=== PATIENT | female | born 1940 | race African-American/Black ===

== ENCOUNTER 2016-05-05 20:30 | Emergency (ER) | payer MEDICARE ==
[~2016-05-05] VITALS: Ht 160 cm; Wt 77.1 kg
[~2016-05-05 20:30] MED LIST: ASPI-482 PO; ATOR20TA58 PO; DICL75TA PO; DULO60CA44 PO; ESOM40CA PO; LORA10TA3 PO; METF500T4 PO; ONDA8TAB12 PO; PROP160C PO; TIZA4TAB PO; TRAM50TA PO; TRIA1CAP3 PO; VERA180T4 PO
[2016-05-05 20:36] VITALS: BP 98/53
--- NOTE | 2016-05-05 21:13 | PHYS DOC ---
Past Medical History Past Medical History: Diabetes-Type II, GERD, High Cholesterol, Hypertension Past Surgical History: Other Additional Past Surgical Histo: eye Alcohol Use: None Drug Use: None Adult General Chief Complaint Chief Complaint: BACK PAIN OR INJURY [facility] HPI Patient is a 75 year old female presents emergency department stating that she is having axle or sinus pain and discomfort and pain in her cheeks area she also states that she is having pain in his going across her upper back. She states she has some numbness and tingling down into her arms. She does have equal diamond cutter noted bilaterally. She states that she called her primary care physician in regards to the pain and discomfort. She states that he advised her to stop taking the doxycycline and take Benadryl. He was under the impression she was having allergic reaction to the medication. Patient denies any rash, denies any nausea vomiting. She denies any injury or trauma to her back. Review of Systems Review of Systems Constitutional: Denies fever or chills [] Eyes: Denies change in visual acuity, redness, or eye pain [] HENT: Denies nasal congestion or sore throat. C/o maxillary sinus pain Respiratory: Denies cough or shortness of breath [] Cardiovascular: No additional information not addressed in HPI [] GI: Denies abdominal pain, nausea, vomiting, bloody stools or diarrhea [] : Denies dysuria or hematuria [] Musculoskeletal: upper back pain Integument: Denies rash or skin lesions [] Neurologic: Denies headache, focal weakness or sensory changes [] Current Medications Current Medications Current Medications Medications (Trade) Dose Ordered Sig/[facility] Start Time Stop Time Status Last Admin Dose Admin Cyclobenzaprine HCl (Flexeril) 5 mg 1X ONCE 05/05/16 22:30 05/05/16 22:31 DC 05/05/16 22:30 5 MG Ibuprofen (Motrin) 400 mg 1X ONCE 05/05/16 21:15 05/05/16 21:16 DC 05/05/16 21:12 400 MG Allergies Allergies Allergies Coded Allergies Type Severity Reaction Last Updated Verified Penicillins Allergy Intermediate Rash 01/19/16 Yes gabapentin Adverse Reaction Unknown feels jittery 01/19/16 Yes hydrocodone Adverse Reaction Unknown nightmares 01/19/16 Yes Physical Exam Physical Exam Constitutional: Well developed, well nourished, no acute distress, non-toxic appearance. [] HENT: Normocephalic, atraumatic, bilateral external ears normal, oropharynx moist, no oral exudates, nose normal. Bilateral tympanic membranes appear to be normal. Eyes: PERRLA, EOMI, conjunctiva normal, no discharge. [] Neck: Normal range of motion, no tenderness, supple, no stridor. [] Cardiovascular:Heart rate regular rhythm, no murmur [] Lungs & Thorax: Bilateral breath sounds clear to auscultation [] Skin: Warm, dry, no erythema, no rash. [] Back: She noted to have upper back tenderness along the upper shoulder areas. Extremities: No tenderness, no cyanosis, no clubbing, ROM intact, no edema. Bilateral upper extremity diamond cutter equal. Patient with equal strength with upper extremities. Bilateral radial pulses equal 2+. Neurologic: Alert and oriented X 3, normal motor function, normal sensory function, no focal deficits noted. [] Psychologic: Affect normal, judgement normal, mood normal. [] Current Patient Data Vital Signs Vital Signs Date Time Temp Pulse Resp B/P Pulse Ox O2 Delivery O2 Flow Rate FiO2 05/05/16 20:36 97.6 90 18 98/53 96 Room Air 97.6 EKG EKG EKG was completed at 20-22 with a normal sinus rhythm of a heart rate of [address] Ortiz. [] Radiology/Procedures Radiology/Procedures [] Course & Med Decision Making Course & Med Decision Making Pertinent Labs and Imaging studies reviewed. (See chart for details) She was provided with ibuprofen here in the emergency department. I will out of the medication to work for approximately 45 minutes with patient stating she still continues to have pain and discomfort. Patient was provided with Flexeril 5 mg. Patient was reevaluated shortly after the medication was provided with patient not having any relief. She states that it feels like she has pins and needles in her back. Patient was instructed to use ice packs at home continue with her doxycycline for sinus infection. Also recommended Flexeril prescription and she was instructed this medication will cause drowsiness do not take any be alert and oriented. Also continue to with take ibuprofen 400 mg every 8 hours with food. Patient will be discharged home in stable condition signs and symptoms to return back to emergency department been provided. Patient was encouraged to follow-up with her primary care physician on Sunday. [] Dragon Disclaimer Dragon Disclaimer This electronic medical record was generated, in whole or in part, using a voice recognition dictation system. Departure Departure Impression: Primary Impression: Back pain Disposition: HOME, SELF-CARE Condition: STABLE Referrals: ROWENA SANCHES MD (PCP) Patient Instructions: Back Pain, Adult, [id number] Additional Instructions: Activity as tolerated Medication as prescribed Flexeril will cause drowsiness do not take any be alert and oriented. Ibuprofen 400 mg every 8 hours with food stop taking few develop an upset stomach. Continue with the antibiotic that you have been prescribed Ice packs to the areas of discomfort on 20 minutes off 20 minutes several times a day. If you are unable to tolerate ice to your back you may use warm moist heat. Follow-up through primary care physician on Sunday. Return back to emergency percent symptoms of become worse. Scripts Cyclobenzaprine Hcl 5 Mg Tablet1 Tab PO BID #20 TAB Prov:NOVA KINNEY NP 05/05/16 NOVA KINNEY NP May 05, 2016 21:13
[2016-05-05] MEDS ORDERED: IBUPROFEN 400 MG TABLET. PO ONE (21:15)
[2016-05-05] MEDS ORDERED: CYCLOBENZAPRINE 10 MG TABLET. PO ONE (22:30)
[2016-05-05] MEDS ORDERED: CYCL5TAB PO (23:15)
--- NOTE | 2016-05-06 12:11 | EKG ---
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
== END 2016-05-05 23:25 | disposition home or self-care (01) ==
LOC: ER 20:30
DX: M54.6 Pain in thoracic spine (principal); E11.9 Type 2 diabetes mellitus without complications; E78.00 Pure hypercholesterolemia, unspecified; I10 Essential (primary) hypertension; Z88.0 Allergy status to penicillin; Z88.5 Allergy status to narcotic agent; Z88.8 Allergy status to other drugs, medicaments and biological substances
CPT/HCPCS: 93005; 99283-25

== ENCOUNTER → 2016-05-30 | Outpatient (CLI) | payer MEDICARE ==
[2016-05-05 20:36] VITALS: BP 98/53
[~2016-05-30] MED LIST changes: +CYCL5TAB PO; +REGADENOSON 0.4 MG/5 ML DISP.SYRIN. IV ONE
--- NOTE | 2016-05-30 12:28 | CARD ---
APPROVED REPORT EXAM: Two-dimensional and M-mode echocardiogram with Doppler and color Doppler. Other Information Quality : GoodHR: 80bpm Rhythm : NSR INDICATION Abnormal ECG Short of breath RISK FACTORS Hypertension Hyperlipidemia Diabetes 2D DIMENSIONS RVDd2.5 (2.9-3.5cm)Left Atrium(2D)3.5 (1.6-4.0cm) IVSd1.0 (0.7-1.1cm)Aortic Root(2D)2.7 (2.0-3.7cm) LVDd4.5 (3.9-5.9cm)LVOT Diameter2.2 (1.8-2.4cm) PWd1.0 (0.7-1.1cm)LVDs2.7 (2.5-4.0cm) FS (%) 39.9 %SV64.0 ml LVEF(%)70.6 (>50%) Aortic Valve AoV Peak Crow.129.3cm/sAoV VTI24.7cm AO Peak GR.6.7mmHgLVOT Peak Crow.106.8cm/s AO Mean GR.4mmHgAVA (VMAX)3.05cm2 Mitral Valve MV E Phtkkpqk94.7cm/sMV E Peak Gr.1mmHg MV DECEL [id number] A Hixnvcok67.7cm/s MV E Mean Gr.1mmHgE/A Ratio0.7 MV A Ewnmdyck019hw Pulmonary Valve PV Peak Przirxob610.3cm/s Tricuspid Valve TR P. Beeduzld851rg/sTR Peak Gr.40mmHg Pulmonary Vein S1 Vkcrnscq86.3cm/sD2 Rsmqlhnf29.4cm/s PVa ovciijsu55kmhm LEFT VENTRICLE The left ventricle is normal size. There is normal left ventricular wall thickness. The left ventricu lar systolic function is normal and the ejection fraction is within normal range. The Ejection Fracti on is 60-65%. There is normal LV segmental wall motion. Transmitral Doppler flow pattern is Grade I-a bnormal relaxation pattern. RIGHT VENTRICLE The right ventricle is normal size. There is normal right ventricular wall thickness. The right ventr icular systolic function is normal. ATRIA The left atrium size is normal. The right atrium size is normal. The interatrial septum is intact wit h no evidence for an atrial septal defect or patent foramen ovale as noted on 2-D or Doppler imaging. AORTIC VALVE The aortic valve is mildly sclerotic. The aortic valve is trileaflet. Doppler and Color Flow revealed no significant aortic regurgitation. There is no significant aortic valvular stenosis. MITRAL VALVE The mitral valve leaflets are thickened. There is no evidence of mitral valve prolapse. There is no m itral valve stenosis. Doppler and Color Flow revealed mild mitral regurgitation. TRICUSPID VALVE Doppler and Color Flow revealed mild tricuspid regurgitation. The pulmonary artery systolic pressure is estimated at 43 mmHg. PULMONIC VALVE Doppler and Color Flow revealed trace pulmonic valvular regurgitation. There is no pulmonic valvular stenosis. GREAT VESSELS The aortic root is normal in size. The ascending aorta is normal in size. The pulmonary artery is nor mal. The IVC is normal in size and collapses >50% with inspiration. PERICARDIAL EFFUSION There is no evidence of significant pericardial effusion. Critical Notification Critical Value: No <Conclusion> The left ventricle is normal size. The left ventricular systolic function is normal and the ejection fraction is within normal range. The Ejection Fraction is 60-65%. There is no significant aortic valvular stenosis. Doppler and Color Flow revealed no significant aortic regurgitation. Doppler and Color Flow revealed mild mitral regurgitation. Doppler and Color Flow revealed mild tricuspid regurgitation. The pulmonary artery systolic pressure is estimated at 43 mmHg.
--- NOTE | 2016-05-30 13:35 | RAD ---
APPROVED REPORT Test Type: Pharmacological Stress Nurse/Tech: Agustina Harding R.N. Test Indications: [place] Cardiac History: HTN Medications: SEE EMR Medical History: SEE EMR Resting ECG: SR Resting Heart Rate: 91 bpm Resting Blood Pressure: 130/63mmHg Pretest Chest Pain: None Nurse/Tech Notes S1S2, lungs CTA, denied chest pain or SOA. Consent: The procedure was explained to the patient in lay terms. Informed consent was witnessed. Elkin eout was entered into [employer]. History and Stress Test performed by Agustina Harding R.N. Pharm. Details Pharmacologic stress testing was performed using 0.4mg per 5ml of regadenoson given intravenously ove r 7-10 seconds. Stress Symptoms Dry cough. POST EXERCISE Reason for Termination: Infusion complete Max HR: 146 bpm Max Blood Pressure: 137/55mmHg Blood Pressure response to exercise: Normal blood pressure response during stress. Heart Rate response to exercise: Normal Chest Pain: No. Arrhythmia: No. ST Change: No. INTERPRETATION Stress EKG Conclusion: No acute changes were noted. Imaging Protocol IMAGE PROTOCOL: Rest Tc-99m/stress Tc-99m 1 day Rest: Stress: Viability: Radiopharm.Tc99m KnbjzkhbtMm22z Sestamibi Xhba17dXj 35.4mCi Duration 15min. 10min. Img Date 05/30/2016 05/30/2016 Inj-Img Bhir67puo. 60min. Rest Admin Site:IV - Right AntecubitalAdministrator:REILLY King Stress Admin Site: IV - Right AntecubitalAdministrator: REILLY King STRESS DATA End Diast. Vol.62.0mlAv. Heart Rate91.0bpm End Syst. Vol.12.0mlCO Index BSA0.0L/min Myocardial Crwk145.0gEject. Nxttiyzs50.0% Stress Rates Pk. Fill Rate3.49EDV/secLVtime Pk. Fill 165.82msec Pk. Empty Rate3.65ESV/secLVtime Pk. Eject83.55msec 03/14 Pk. Fill0.90EDV/sec Stress Scores Regional WT1.00Summed WT7.00 Regional WM0.00Summed WM0.00 The rest and stress images show normal perfusion, normal contraction and thickening. LV Perf. Quant 17 Seg. SSS0.00 17 Seg. SRS6.00 17 Seg. SDS0.00 Stress Defect Extent (% LAD)0.00Rest Defect Extent (% LAD)0.00Rev. Defect Extent (% LAD)0.00 Stress Defect Extent (% LCX) 5.00Rest Defect Extent (% LCX)38.80Rev. Defect Extent (% LCX)0.00 Stress Defect Extent (% RCA)0.00Rest Defect Extent (% RCA)1.10Rev. Defect Extent (% RCA)0.00 Stress Defect Extent (% STAR)3.00Rest Defect Extent (% STAR)11.70Rev. Defect Extent (% STAR)0.00 Other Information Quality:Good Risk Assessment: Low Risk Conclusion 1. No evidence of stress induced vasodilator changes. 2. Normal perfusion at stress/rest 3. Low risk study 4. EF > 70%
== END | disposition home or self-care (01) ==
LOC: NM 07:49
PROVIDERS: ATTEND Internal Medicine Cardiovascular Disease
DX: R94.31 Abnormal electrocardiogram [ECG] [EKG] (principal); R06.09 Other forms of dyspnea; R07.9 Chest pain, unspecified; I10 Essential (primary) hypertension; E11.9 Type 2 diabetes mellitus without complications; I34.0 Nonrheumatic mitral (valve) insufficiency; I07.1 Rheumatic tricuspid insufficiency; I37.1 Nonrheumatic pulmonary valve insufficiency
CPT/HCPCS: 78452; 93017; 93306; 96374; 96375; 96376; A9500; J2785

== ENCOUNTER → 2016-08-29 | Outpatient (CLI) | payer BC ==
[~2016-08-29] MED LIST changes: +IOHEXOL 180 MG/ML 10 ML VIAL. ONE; -REGADENOSON 0.4 MG/5 ML DISP.SYRIN. IV ONE; -VERA180T4 PO; +VERA180T49 PO; +methylPREDNISolone ACETATE 40 MG/ML VIAL. ONE; +methylPREDNISolone ACETATE 80 MG/ML VIAL. ONE
--- NOTE | 2016-08-30 03:48 | PAIN ---
DATE OF SERVICE: 08/29/2016 PROGRESS NOTE FOR PAIN CLINIC DIAGNOSES: Cervical radiculopathy with cervical degenerative disk disease. HISTORY OF PRESENT ILLNESS: This is a 76-year-old female who returns for followup, last seen on 02/29/2016. The patient reports she did very well with about 75% improvement in her neck and right upper extremity pain, it is about 50% improvement now at the most and is beginning to return more significantly in the base of the neck and right greater than left upper extremity with radiation to right hand and arm with tingling and numbness, also some aching and sharp pain that has been getting more constant and throbbing in the right hip. The patient reports it is a 10 on a scale of 10 at its worst, is a 6 on a scale of 10 today. The patient reports no new motor or sensory deficits, no new other complaints, but still significant pain is noted. PHYSICAL EXAMINATION: VITAL SIGNS: The patient's blood pressure 132/70, pulse 80, respirations 18, temperature 97.7 degrees Fahrenheit, height is 5 feet 2 inches, weight is 168 pounds. GENERAL: The patient is awake, alert, oriented, appropriate, very pleasant demeanor. HEENT: Shows normocephalic, atraumatic. Extraocular movements are intact and symmetrical. Oral cavity, mucous membranes are moist and pink. Dentition is intact. NECK: Shows anterior throat supple without palpable lymphadenopathy noted. Swallow reflex is symmetrical. CHEST: Shows normal on inspection. Breath sounds clear to auscultation bilaterally. HEART: Shows S1 and S2 clear. No murmurs auscultated. ABDOMEN: Soft, nontender, nondistended. No palpable organomegaly. No rebound or guarding demonstrated. MUSCULOSKELETAL: Back shows spine grossly in the midline. Slight exaggeration of thoracic kyphosis and mild flattening cervical and lumbar lordotic curvature. Cervical paraspinous musculature shows some moderate tenderness to palpation, but is symmetrical on inspection. No radiation with palpation. No trigger points. Also, some tenderness in the superomedial and lateral aspect of the trapezius without radiation. Neck shows good rotational motion both laterally as well as extension and flexion with some minor pain reported with extension, but not with forward flexion and only on the right side in the base of the neck and shoulder. EXTREMITIES: Upper extremities show deep tendon reflexes 2+ in the biceps and triceps tendons are equal. Motor exam is strong with cushion maker hand strength rated at 5/5 and symmetrical as is biceps and triceps flexion. Peripheral pulses are 2+ in radial distribution. Options were discussed with the patient, the patient's old chart was reviewed as her current medication regimen updated. Current review of systems updated today as well. We will proceed with a cervical epidural steroid injection as the first in the series with fluoroscopic guidance. Risks were again discussed including, but not limited to bleeding, infection, possibility of epidural hematoma, subsequent neurologic compromise, dural puncture, headaches, spinal cord and/or nerve damage, side effects of steroid medication and poor results regarding pain control. The patient understands and wishes to proceed. The patient will return to clinic in approximately 2 weeks for followup. She was counseled on return appointment, activity level and side effects to be aware of. DIAGNOSES: Cervical radiculopathy with cervical degenerative disk disease. PROCEDURE: Cervical epidural steroid injection in translaminar approach at C6-C7 level using C-arm fluoroscopic guidance under sterile prep and drape using local anesthetic. MEDICATIONS INJECTED: 120 mg of Depo-Medrol plus 5 mL of preservative-free normal saline and 2 mL of Isovue for contrast. CONDITION AT DISCHARGE: Stable. The patient tolerated procedure well, had no complications. PRABHA RYAN MD DR: SHIRIN/deirdre JOB#: [id number] / [id number]
== END | disposition home or self-care (01) ==
LOC: PNCL 11:04
PROVIDERS: ATTEND Anesthesiology
DX: M50.323 Other cervical disc degeneration at C6-C7 level (principal); Z88.6 Allergy status to analgesic agent; Z88.0 Allergy status to penicillin
CPT/HCPCS: 62321; J1030; J1040

== ENCOUNTER → 2016-12-08 | Outpatient (CLI) | payer BC ==
[~2016-12-08] MED LIST changes: -IOHEXOL 180 MG/ML 10 ML VIAL. ONE; -methylPREDNISolone ACETATE 40 MG/ML VIAL. ONE; -methylPREDNISolone ACETATE 80 MG/ML VIAL. ONE
--- NOTE | 2016-12-08 14:44 | RAD ---
DATE: 12/08/2016. EXAM: DIGITAL SCREEN BILAT W/CAD. HISTORY: Routine mammographic screening. COMPARISON: 12/08/2015, 11/29/2014, 12/03/2013. This study was interpreted with the benefit of Computerized Aided Detection (CAD). FINDINGS: The breast parenchyma is heterogeneously dense, which could reduce sensitivity of mammography. Breast parenchyma level C.. There are no suspicious masses, microcalcifications or architectural distortion. Coarse calcification on the left is stable and benign. BI-RADS CATEGORY: 2 BENIGN FINDING(S). RECOMMENDED FOLLOW-UP: 12M 12 MONTH FOLLOW-UP. PQRS compliance statement: Patient information was entered into a reminder system with a target due date 12/08/2017 or the next mammogram. Mammography is a sensitive method for finding small breast cancers, but it does not detect them all and is not a substitute for careful clinical examination. A negative mammogram does not negate a clinically suspicious finding and should not result in delay in biopsying a clinically suspicious abnormality. "Our facility is accredited by the [employer] Mammography Program."
== END | disposition home or self-care (01) ==
LOC: MAMMO 14:07
PROVIDERS: ATTEND Family Medicine
DX: Z12.31 Encounter for screening mammogram for malignant neoplasm of breast (principal)
CPT/HCPCS: G0202; 77067

== ENCOUNTER → 2017-12-25 | Outpatient (CLI) | payer BC ==
[~2017-12-25] MED LIST changes: +METF500T16 PO; -METF500T4 PO
--- NOTE | 2017-12-26 12:07 | RAD ---
DATE: December 25, 2017 EXAM: MAMMO CADENCE SCREENING BILATERAL HISTORY: Screening study. COMPARISON: 2015 and 2017 This study was interpreted with the benefit of Computerized Aided Detection (CAD). 2-D digital mammographic views of both breasts were performed in the CC and MLO projections. 3-D digital tomosynthesis images of both breasts were performed in the CC and MLO projections and reviewed on a computer workstation. FINDINGS: Breast Density: HETERO The breast parenchyma is heterogenously dense, which could reduce sensitivity of mammography. Breast parenchyma level C.. There are no dominant suspicious masses, suspicious microcalcifications or evidence of architectural distortion. IMPRESSION: No mammographic indicators for malignancy. BI-RADS CATEGORY: 1 NEGATIVE RECOMMENDED FOLLOW-UP: 12M 12 MONTH FOLLOW-UP PQRS compliance statement: Patient information was entered into a reminder system with a target due date December 26, 2018 for the next mammogram. Mammography is a sensitive method for finding small breast cancers, but it does not detect them all and is not a substitute for careful clinical examination. A negative mammogram does not negate a clinically suspicious finding and should not result in delay in biopsying a clinically suspicious abnormality. "Our facility is accredited by the [employer] Mammography Program." The patient's breast density may affect the ability of mammography to detect breast cancer. There are 4 categories of breast density, A, B, C and D. Breast density A means that most of the breast tissue is replaced with adipose tissue and therefore is not dense. Breast density B means that the breast tissue is mildly dense and scattered. Breast density C means that the breast tissue is heterogeneously dense. Breast density D means that the breast tissue is very dense. Breast densities especially C and D may decrease the sensitivity of mammography to detect breast cancer. Therefore, the patient may benefit from 3-D breast mammography (3D breast tomography) as a part of their screening mammogram. Insurance may or may not pay for this additional imaging. The patient's breast density based on today's mammogram is category C.
== END | disposition home or self-care (01) ==
LOC: MAMMO 14:40
PROVIDERS: ATTEND Family Medicine
DX: Z12.31 Encounter for screening mammogram for malignant neoplasm of breast (principal)
CPT/HCPCS: 77063; 77067

== ENCOUNTER 2018-10-09 11:04 | Emergency (ER) | payer BC ==
[~2018-10-09] VITALS: Ht 160 cm; Wt 78.5 kg
[~2018-10-09 11:04] MED LIST changes: -DULO60CA44 PO; +DULO60CA45 PO; -TIZA4TAB PO; +TIZA4TAB2 PO; -VERA180T49 PO; +VERA180T6 PO
[2018-10-09 11:25] VITALS: BP 143/79
[2018-10-09] MEDS ORDERED: methylPREDNISolone ACETATE 80 MG/ML VIAL. INT ART ONE (11:45)
[2018-10-09] MEDS ORDERED: LIDOCAINE 1% PF 5 ML VIAL. INJ ONE (11:45)
--- NOTE | 2018-10-09 11:59 | RAD ---
KNEE RIGHT 3V History: Right knee pain, no injury Comparison: June 02, 2014 Findings: 3 views right knee are submitted. No acute fracture or dislocation is identified. There is irvo-ht-uiwrdzee narrowing of the medial compartment joint space, mild osteoarthritis change of the lateral compartment and patellofemoral articulation. There is possible degree of suprapatellar soft tissue swelling. Impression: 1. 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 There may be suprapatellar soft tissue swelling. Electronically signed by: Manolo Starkey MD (10/09/2018 11:56 AM) [id number]
[2018-10-09] MEDS ORDERED: MELO15TA23 PO (12:12)
--- NOTE | 2018-10-09 12:12 | PHYS DOC ---
Past Medical History Past Medical History: Diabetes-Type II, GERD, High Cholesterol, Hypertension Past Surgical History: Other Additional Past Surgical Histo: eye Alcohol Use: None Drug Use: None Adult General Chief Complaint Chief Complaint: LOWER EXT PAIN HPI HPI 78-year-old female presents with right knee pain. She states it's been bothering her for some time but today she was walking into [facility] and it buckled on her. She states after buckled she's been having tremendous amount of discomfort. She states it's very tender when she tries to walk or bend it in any way. She states she did not fall and hit her knee. The pain is throbbing in nature.[] Review of Systems Review of Systems Constitutional: Denies fever or chills [] Eyes: Denies change in visual acuity, redness, or eye pain [] HENT: Denies nasal congestion or sore throat [] Respiratory: Denies cough or shortness of breath [] Cardiovascular: No additional information not addressed in HPI [] GI: Denies abdominal pain, nausea, vomiting, bloody stools or diarrhea [] : Denies dysuria or hematuria [] Musculoskeletal: Patient reports right knee pain[] Integument: Denies rash or skin lesions [] Neurologic: Denies headache, focal weakness or sensory changes [] Endocrine: Denies polyuria or polydipsia [] All other systems were reviewed and found to be within normal limits, except as documented in this note. Current Medications Current Medications Current Medications Medications (Trade) Dose Ordered Sig/Doreen Start Time Stop Time Status Last Admin Dose Admin Lidocaine HCl (Xylocaine-Mpf 1% 5ml Vial) 5 ml 1X ONCE 10/09/18 11:45 10/09/18 12:04 DC Methylprednisolone Acetate (DEPO-Medrol 80MG VIAL) 80 mg 1X ONCE 10/09/18 11:45 10/09/18 12:04 DC Allergies Allergies Allergies Coded Allergies Type Severity Reaction Last Updated Verified Penicillins Allergy Intermediate Rash 01/19/16 Yes gabapentin Adverse Reaction Unknown feels jittery 01/19/16 Yes hydrocodone Adverse Reaction Unknown nightmares 01/19/16 Yes Physical Exam Physical Exam Constitutional: Well developed, well nourished, no acute distress, non-toxic appearance. [] HENT: Normocephalic, atraumatic, bilateral external ears normal, oropharynx moist, no oral exudates, nose normal. [] Eyes: PERRLA, EOMI, conjunctiva normal, no discharge. [] Neck: Normal range of motion, no tenderness, supple, no stridor. [] Cardiovascular:Heart rate regular rhythm, no murmur [] Lungs & Thorax: Bilateral breath sounds clear to auscultation [] Abdomen: Bowel sounds normal, soft, no tenderness, no masses, no pulsatile masses. [] Skin: Warm, dry, no erythema, no rash. [] Back: No tenderness, no CVA tenderness. [] Extremities: Right knee is mildly painful through range of motion she is tender to palp at her medial and lateral joint space through range of motion there is some audible crepitus. [] Neurologic: Alert and oriented X 3, normal motor function, normal sensory function, no focal deficits noted. [] Psychologic: Affect normal, judgement normal, mood normal. [] Current Patient Data Vital Signs Vital Signs Date Time Temp Pulse Resp B/P (MAP) Pulse Ox O2 Delivery O2 Flow Rate FiO2 10/09/18 11:25 98.0 97 18 143/79 (100) 98 Room Air 98.0 EKG EKG [] Radiology/Procedures Radiology/Procedures [] Impressions: Right knee x-ray: Negative exam as interpreted by me Course & Med Decision Making Course & Med Decision Making Pertinent Labs and Imaging studies reviewed. (See chart for details) [Procedure: Right knee injection The medial joint space was identified and marked then prepped sterilely then using a 25-gauge inch and a half needle 5 mL of 1% lidocaine without epinephrine and 80 mg of Depo-Medrol were injected easily into the joint space. Patient experienced immediate relief of her symptoms. Patient tolerated procedure well.] Dragon Disclaimer Dragon Disclaimer This electronic medical record was generated, in whole or in part, using a voice recognition dictation system. Departure Departure Impression: Primary Impression: Right knee pain Disposition: 01 HOME, SELF-CARE Condition: IMPROVED Referrals: NANCY CALLE MD, Dr. is an orthopedic surgeon. Follow with him in the next couple of weeks to make sure your knee is feeling better. Patient Instructions: Arthritis, Nonspecific, Knee Injection, Knee Pain Additional Instructions: Follow with an orthopedic surgeon if there is no improvement in your knee pain. Return to the emergency department with any new or concerning symptoms Scripts Meloxicam (MELOXICAM) 15 Mg Tablet 1 TAB PO DAILY, #30 TAB 2 Refills Prov: MARGIE LEW DO 10/09/18 Problem Qualifiers Primary Impression: Right knee pain Chronicity: acute Qualified Codes: M25.561 - Pain in right knee MARGIE LEW DO Oct 09, 2018 12:12
== END 2018-10-09 12:39 | disposition home or self-care (01) ==
LOC: ER 11:04
DX: M25.561 Pain in right knee (principal); K21.9 Gastro-esophageal reflux disease without esophagitis; E78.00 Pure hypercholesterolemia, unspecified; E11.9 Type 2 diabetes mellitus without complications; I10 Essential (primary) hypertension; Z88.0 Allergy status to penicillin; Z88.5 Allergy status to narcotic agent; Z88.8 Allergy status to other drugs, medicaments and biological substances
CPT/HCPCS: 20610; 73562; 99284; J1040

== ENCOUNTER → 2019-01-13 | Outpatient (CLI) | payer BC ==
[~2019-01-13] MED LIST changes: +MELO15TA23 PO
--- NOTE | 2019-01-13 17:03 | RAD ---
DATE: 01/13/2019. EXAM: DIGITAL SCREEN BILAT W/CAD. HISTORY: Routine mammographic screening. COMPARISON: 12/25/2017. This study was interpreted with the benefit of Computerized Aided Detection (CAD). FINDINGS: Breast Density: HETERO The breast parenchyma is heterogenously dense, which could reduce sensitivity of mammography. Breast parenchyma level C.. Coarse calcifications are benign. There are no suspicious masses, microcalcifications or architectural distortion. The parenchymal pattern is stable. BI-RADS CATEGORY: 2 BENIGN FINDING(S). RECOMMENDED FOLLOW-UP: 12M 12 MONTH FOLLOW-UP. PQRS compliance statement: Patient information was entered into a reminder system with a target due date 01/14/2020 for the next mammogram. Mammography is a sensitive method for finding small breast cancers, but it does not detect them all and is not a substitute for careful clinical examination. A negative mammogram does not negate a clinically suspicious finding and should not result in delay in biopsying a clinically suspicious abnormality. "Our facility is accredited by the [employer] Mammography Program."
== END | disposition home or self-care (01) ==
LOC: MAMMO 13:55
PROVIDERS: ATTEND Family Medicine
DX: Z12.31 Encounter for screening mammogram for malignant neoplasm of breast (principal); R92.1 Mammographic calcification found on diagnostic imaging of breast
CPT/HCPCS: 77067

== ENCOUNTER 2019-03-06 11:46 | Emergency (ER) | payer BC ==
[~2019-03-06] VITALS: Ht 160 cm; Wt 78.5 kg
[2019-03-06 12:07] VITALS: BP 134/62
--- NOTE | 2019-03-06 12:39 | PHYS DOC ---
Past Medical History Past Medical History: Diabetes-Type II, GERD, High Cholesterol, Hypertension Past Surgical History: Other Additional Past Surgical Histo: eye Alcohol Use: None Drug Use: None Adult General Chief Complaint Chief Complaint: LOWER BACK PAIN OR INJURY HPI HPI Patient is a 78 year old female with history of hypertension, diabetes type 2, high cholesterol, who presents the ED today complaining of mild left low back pain described as sharp and intermittent for the last 2 weeks worse on weight bearing. Patient denies any known injury. She states she feels her left low back is inflamed. Denies any urinary symptoms. Patient denies any pain radiating to bilateral lower extremities, denies any loss of bowel bladder function. Review of Systems Review of Systems Constitutional: Denies fever or chills [] GI: Denies abdominal pain, nausea, vomiting, bloody stools or diarrhea [] : Denies dysuria or hematuria [] Musculoskeletal: Reports left low back pain Integument: Denies rash or skin lesions [] Neurologic: Denies headache, focal weakness or sensory changes [] All other systems were reviewed and found to be within normal limits, except as documented in this note. Allergies Allergies Allergies Coded Allergies Type Severity Reaction Last Updated Verified Penicillins Allergy Intermediate Rash 01/19/16 Yes gabapentin Adverse Reaction Unknown feels jittery 01/19/16 Yes hydrocodone Adverse Reaction Unknown nightmares 01/19/16 Yes Physical Exam Physical Exam Constitutional: Well developed, well nourished, no acute distress, non-toxic appearance. [] Abdomen: Bowel sounds normal, soft, no tenderness, no masses, no pulsatile masses. [] Skin: Warm, dry, no erythema, no rash. [] Back: Diffuse paraspinal muscle tenderness on palpation of the left lumbar spine, no midline lumbar spine tenderness, no CVA tenderness. Negative bilateral straight leg raises Extremities: No tenderness, no cyanosis, no clubbing, ROM intact, no edema. [] Neurologic: Alert and oriented X 3, normal motor function, normal sensory function, no focal deficits noted. [] Psychologic: Affect normal, judgement normal, mood normal. [] Current Patient Data Vital Signs Vital Signs Date Time Temp Pulse Resp B/P (MAP) Pulse Ox O2 Delivery O2 Flow Rate FiO2 03/06/19 12:07 98.2 58 18 134/62 (86) 97 Room Air 98.2 EKG EKG [] Radiology/Procedures Radiology/Procedures [] Course & Med Decision Making Course & Med Decision Making Pertinent Labs and Imaging studies reviewed. (See chart for details) This is a 78-year-old female patient presenting to the ED today with left low back pain that began 2 weeks ago, no known injury. No cauda equina syndrome symptoms. Discharged with Medrol Dosepak and cyclobenzaprine as well as [id number] Aleve. Follow-up with primary care doctor in 1-2 weeks. Supportive care measures like heating pad recommended. Dragon Disclaimer Dragon Disclaimer This electronic medical record was generated, in whole or in part, using a voice recognition dictation system. Departure Departure Impression: Primary Impression: Back pain Disposition: HOME, SELF-CARE Condition: STABLE Referrals: ROWENA SANCHES MD (PCP) follow up next week Patient Instructions: Back Pain, Adult, [id number] Additional Instructions: You were seen in the emergency room for low back pain. Consider getting a heating pad for your back. Follow-up with your own doctor in the course of next week Scripts Cyclobenzaprine Hcl (CYCLOBENZAPRINE HCL) 10 Mg Tablet 1 TAB PO TID, #30 TAB Prov: DARIANA PIZARRO APRN 03/06/19 Naproxen Sodium (ALEVE) 220 Mg Capsule 220 MG PO BID, #5 CAP Prov: DARIANA PIZARRO APRN 03/06/19 Methylprednisolone (MEDROL) 4 Mg Tab.ds.pk 1 PKG PO UD, #1 PKG Prov: YUSEFKARDARIANA APRN 03/06/19 Problem Qualifiers Primary Impression: Back pain Back pain location: low back pain Chronicity: acute Back pain laterality: left Sciatica presence: without sciatica Qualified Codes: M54.5 - Low back pain DARIANA PIZARRO KULWANT Mar 06, 2019 12:39
[2019-03-06] MEDS ORDERED: NAPR220C4 PO (12:43)
[2019-03-06] MEDS ORDERED: METH4TAB2 PO (12:43)
[2019-03-06] MEDS ORDERED: CYCL10TA2 PO (12:43)
== END 2019-03-06 12:53 | disposition home or self-care (01) ==
LOC: ER 11:46
DX: M54.5 Low back pain (principal); K21.9 Gastro-esophageal reflux disease without esophagitis; E11.9 Type 2 diabetes mellitus without complications; E78.00 Pure hypercholesterolemia, unspecified; I10 Essential (primary) hypertension; Z88.0 Allergy status to penicillin; Z88.5 Allergy status to narcotic agent; Z88.8 Allergy status to other drugs, medicaments and biological substances
CPT/HCPCS: 99283

== ENCOUNTER 2019-04-14 12:53 | Emergency (ER) | payer BC ==
[~2019-04-14] VITALS: Ht 160 cm; Wt 79.5 kg
[~2019-04-14 12:53] MED LIST changes: +CYCL10TA2 PO; +METH4TAB2 PO; +NAPR220C4 PO
[2019-04-14 13:33] VITALS: BP 168/79
[2019-04-14] MEDS ORDERED: METH4TAB2 PO (14:12)
--- NOTE | 2019-04-14 14:13 | PHYS DOC ---
Past Medical History Past Medical History: Diabetes-Type II, GERD, High Cholesterol, Hypertension Past Surgical History: Other Additional Past Surgical Histo: eye Alcohol Use: None Drug Use: None Adult General Chief Complaint Chief Complaint: HIP PAIN HPI HPI Patient is a 78 year old female who presents with L hip pain that has been radiating down the left leg that has been ongoing for a month. The patient has narcotics and muscle relaxers that she has been taking at home. Denies additional complaints. Complete ROS were reviewed and found to be within normal limits, except as documented in the HPI Review of Systems Review of Systems Constitutional: Denies fever or chills [] Eyes: Denies change in visual acuity, redness, or eye pain [] HENT: Denies nasal congestion or sore throat [] Respiratory: Denies cough or shortness of breath [] Cardiovascular: No additional information not addressed in HPI [] GI: Denies abdominal pain, nausea, vomiting, bloody stools or diarrhea [] : Denies dysuria or hematuria [] Musculoskeletal: Reports L lower back pain. Integument: Denies rash or skin lesions [] Neurologic: Denies headache, focal weakness or sensory changes [] Endocrine: Denies polyuria or polydipsia [] Complete systems were reviewed and found to be within normal limits, except as documented in this note. Allergies Allergies Allergies Coded Allergies Type Severity Reaction Last Updated Verified Penicillins Allergy Intermediate Rash 01/19/16 Yes gabapentin Adverse Reaction Unknown feels jittery 01/19/16 Yes hydrocodone Adverse Reaction Unknown nightmares 01/19/16 Yes Physical Exam Physical Exam Constitutional: Well developed, well nourished, no acute distress, non-toxic appearance. [] HENT: Normocephalic, atraumatic, bilateral external ears normal, oropharynx moist, no oral exudates, nose normal. [] Eyes: PERRLA, EOMI, conjunctiva normal, no discharge. [] Neck: Normal range of motion, no tenderness, supple, no stridor. [] Skin: Warm, dry, no erythema, no rash. [] Back: left lower back pain superior to hip on palpation. Extremities: No tenderness, no cyanosis, no clubbing, ROM intact, no edema. [] Neurologic: Alert and oriented X 3, normal motor function, normal sensory function, no focal deficits noted. [] Psychologic: Affect normal, judgement normal, mood normal. [] Current Patient Data Vital Signs Vital Signs Date Time Temp Pulse Resp B/P (MAP) Pulse Ox O2 Delivery O2 Flow Rate FiO2 04/14/19 13:33 97.7 71 20 168/79 (108) 98 Room Air 97.7 EKG EKG [] Radiology/Procedures Radiology/Procedures [] Course & Med Decision Making Course & Med Decision Making Pertinent Labs and Imaging studies reviewed. (See chart for details) Appears to be having sciatica. Will put on a medrol dose pack. Patient already has narcotics and muscle relaxers at home. Dragon Disclaimer Dragon Disclaimer This electronic medical record was generated, in whole or in part, using a voice recognition dictation system. Departure Departure Impression: Primary Impression: Sciatica of left side Disposition: HOME, SELF-CARE Condition: STABLE Referrals: ROWENA SANCHES MD (PCP) Patient Instructions: Sciatica Additional Instructions: Thank you for visiting [facility]. We appreciate you trusting us with your care. If any additional problems come up don't hesitate to return to visit us. Please follow up with your primary care provider so they can plan additional care if needed and know about the problem that you had. If symptoms worsen come back to the Emergency Department. Any concerning symptoms that start such as chest pain, shortness of air, weakness or numbness on one side of the body, running high fevers or any other concerning symptoms return to the ER. Scripts Methylprednisolone (MEDROL) 4 Mg Tab.ds.pk 1 PKG PO UD, #1 PKG Prov: LISSETT GUZMÁN APRN 04/14/19 LISSETT GUZMÁN APRN Apr 14, 2019 14:13
== END 2019-04-14 14:20 | disposition home or self-care (01) ==
LOC: ER 12:53
DX: M54.42 Lumbago with sciatica, left side (principal); M25.552 Pain in left hip; K21.9 Gastro-esophageal reflux disease without esophagitis; E11.9 Type 2 diabetes mellitus without complications; E78.00 Pure hypercholesterolemia, unspecified; I10 Essential (primary) hypertension; Z88.0 Allergy status to penicillin; Z88.5 Allergy status to narcotic agent; Z88.8 Allergy status to other drugs, medicaments and biological substances
CPT/HCPCS: 99283

== ENCOUNTER → 2019-05-08 | Outpatient (CLI) | payer BC ==
[2019-04-14 13:33] VITALS: BP 168/79
--- NOTE | 2019-05-08 12:20 | KCIC ---
MRI Lumbar Spine without contrast History: Low back pain, radicular leg pain, weakness Technique: Multiplanar, multi sequential noncontrast MR imaging was performed of the lumbar spine. Comparison: None Findings: Lumbar vertebral body stature is maintained. There is grade 1 anterior spondylolisthesis at L4-5 and to a somewhat lesser degree at L5-S1, negligible anterior spondylolisthesis L3-4. There is mild narrowing of the L4-5 intervertebral disc space, mild disc desiccation L3-4 and L5-S1. Conus terminates at T12-L1. There is small anterior annular tear L3-4. Not fully included, there is T2 hyperintense lesion of the right kidney at least 4.4 cm, separate focus anteriorly about 1.2 cm. There is focus of decreased T2 signal posteriorly of the left kidney about 1 cm in size with somewhat heterogeneous signal characteristics on the T1 sequence. T12-L1: Spinal canal and neural foramina are adequate. L1-L2: Spinal canal and neural foramina are adequate. There is negligible bulge. L2-L3: There is mild buckling of the ligamentum flavum and facet degenerative change. There is mild prominence of posterior epidural fat centrally. Neural foramina and spinal canal are adequate. L3-L4: There is mild buckling of the ligamentum flavum and facet degenerative change. There is negligible bulge. There is left posterior annular tear. There is very mild narrowing of the posterior neural foramina greater on the left by facets. Spinal canal is overall adequate. L4-L5: There is partial uncovering of the posterior aspect of the disc due to spondylolisthesis. There is mild to moderate facet degenerative change and mild buckling of the ligamentum flavum. There is juot-zh-wslteuay narrowing of the far left lateral recess, minimally on the right. Central canal is adequate. There is mild to moderate left and mild right neural foramina compromise in part from facets. L5-S1: There is aabh-tq-yjppehgr facet degenerative change. There is negligible bulge. Spinal canal is overall adequate. There is ujuu-qr-[id number] narrowing of the left neural foramen, disc osteophyte complex contacting undersurface of the exiting left L5 nerve root. There is minimal narrowing of the right neural foramen. Impression: 1. There is focus of somewhat heterogeneous signal of the left kidney which does not have features of a simple cyst at ultrasound evaluation recommended to exclude solid mass. There are likely cysts of the right kidney, not fully included. 2. There is cvcd-ox-uhijhvon left and mild right lateral recess stenosis at L4-5. 3. There is frsn-gm-ycnsokle left neural foramina compromise at L4-5 and L5-S1, minimally on the right at these levels and also minimal narrowing bilaterally at L3-4. 4. There is grade 1 anterior spondylolisthesis L4-5 and to lesser degree at L5-S1. There is multilevel facet degenerative change. Electronically signed by: Manolo Starkey MD (05/08/2019 12:17 PM) [id number]
== END ==
LOC: KCIC MRI 10:10
PROVIDERS: ATTEND Family Medicine
DX: M48.061 Spinal stenosis, lumbar region without neurogenic claudication (principal); M43.17 Spondylolisthesis, lumbosacral region; M25.78 Osteophyte, vertebrae; M54.10 Radiculopathy, site unspecified
CPT/HCPCS: 72148

== ENCOUNTER → 2019-07-30 | Outpatient (CLI) | payer BC ==
[~2019-07-30] MED LIST changes: +ALBU2.5V8 IH; +FLUT1DIS3 IH; +FLUT9.9S NS; +HYDR-2763 PO; +IOHEXOL 180 MG/ML 10 ML VIAL. ONE; +MECL-75 PO; +MONT10TA49 PO; +SUCR1TAB PO; +TRIA1CAP PO; +methylPREDNISolone ACETATE 40 MG/ML VIAL. ONE; +methylPREDNISolone ACETATE 80 MG/ML VIAL. ONE
--- NOTE | 2019-07-30 23:47 | PAIN ---
DATE OF SERVICE: 07/30/2019 INITIAL CONSULTATION FOR PAIN CLINIC CHIEF COMPLAINT: Low back and left lower extremity pain. HISTORY OF PRESENT ILLNESS: This is a 78-year-old female who presents with history of pain since about 03/04/2019. Suddenly occurred, but not a result of any specific injury or action that she is aware of. The patient reports the pain began in the low back and it has radiated in to the left lower hip, posterior gluteus, posterior thigh, posterior lateral thigh as well as the posterior calf with numbness in the foot and big toe on the left side. The patient reports it is worse with walking, standing, changing positions, getting up from seated position, generally better with sitting or lying down, but does awaken her from sleep about 3 times a night. The patient reports it does not affect her bowel or bladder control, but does affect her ability to walk where she is not using any assistive devices, but has been limping and favoring her left lower extremity fairly significantly. The patient reports she has done some physical therapy, also trigger point injections at her primary care physician's office, which did help temporarily. She has also been taking hydrocodone, which helps as well. The patient did have MRI scan of the lumbar spine on 05/08/2019 showing partial uncovering of the posterior aspect of the disk at L4-L5 with some oxks-tj-rrxaachp left and mild right neural foraminal compromise. L5-S1 shows vnok-cz-egfhqmok facet degenerative change with negligible bulge with afbl-ay-rhawcsyd narrowing of left neural foramen with disk osteophyte complex contacting undersurface of the exiting left L5 nerve root. The patient reports her disability rating from 0-10, 10 being the worst, is a 5 with family and home responsibilities, 4 with recreation and social activity, 8 with occupation, 0 sexual behavior, 3 with self-care and 2 with life support activities. The patient reports no loss of motor function once again, but significant fatigability of the left leg with walking and standing. The patient describes the pain as sharp, stabbing, throbbing, shooting in the lower extremity and aching in the back with some numbness in the left leg and foot, especially the great toe and aching in the back itself. PAST MEDICAL HISTORY: Significant for type 2 diabetes, hearing loss, glaucoma, hypertension, hypercholesterolemia, acid reflux, dizziness, arthritis. PREVIOUS SURGERY: Include cataract extractions in 2013. CURRENT MEDICATIONS: Include albuterol inhaler, sucralfate, Advair inhaler, Dyazide, hydrocodone, Nexium, atorvastatin, daily baby aspirin, metformin, verapamil, propranolol, duloxetine, triamterene, meloxicam and meclizine. ALLERGIES: THE PATIENT IS ALLERGIC TO HYDROCODONE AND GABAPENTIN AND PENICILLIN. FAMILY HISTORY: Significant for hypertension and diabetes. SOCIAL HISTORY: The patient does not drink alcohol, does not smoke, does not use any illegal, illicit or recreational drugs. The patient reports she is and lives locally in [place], [place] and reports she is currently retired. REVIEW OF SYSTEMS: The patient's review of systems is positive for those items mentioned in history of present illness. All systems reviewed and otherwise negative. It is complete, full and well documented on the patient's chart. PHYSICAL EXAMINATION: VITAL SIGNS: The patient's blood pressure is 149/75, pulse 75, respirations 18, temperature is 97.8 degrees Fahrenheit, height is 5 feet 3 inches, weight is 124 pounds. GENERAL: The patient is awake, alert, oriented, appropriate, very pleasant demeanor. HEENT: Exam shows normocephalic, atraumatic. Extraocular movements are intact and symmetrical. Oral cavity shows mucous membranes moist and pink. Dentition is intact. NECK: Shows anterior throat supple without palpable lymphadenopathy noted. Swallow reflex symmetrical. CHEST: Shows normal on inspection. Breath sounds are clear bilaterally. HEART: Shows S1, S2 clear. No murmurs auscultated. ABDOMEN: Soft, nontender, nondistended. No palpable organomegaly is noted. No rebound or guarding demonstrated. BACK: Shows spine grossly in the midline, normal-appearing cervical lordotic curvature, slight increase in thoracic kyphosis. Lumbar lordotic curvature is slightly flattened as well. Lumbar paraspinous muscle shows symmetrical on inspection, but with palpation shows some moderate tenderness diffusely bilaterally, but only diffusely in the lower lumbar distribution without radiation. The patient does show good rotational motion of lumbar spine, both laterally greater than 10 degrees right and left as well as extension greater than 10 degrees, forward flexion 45 degrees without significant increase in pain, no tenderness over the spinous processes, sacrum or sacroiliac regions. EXTREMITIES: Patient's lower extremities show deep tendon reflexes 1+ in the patellar and tendo calcaneus tendons. Motor exam is approximately 4 on a scale of 5 on the left, 5/5 on the right. Peripheral pulses are 1+ posterior tibia. No peripheral edema is noted. Lower extremities are warm and dry to touch, equal in color and appearance. Straight leg raise noted to be mildly positive on the left at about 45 degrees, decreased with knee flexion, right side is negative. Gaenslen's and Mj's maneuvers are grossly negative bilaterally as well. The patient is able to stand, has difficulty trying to stand on her toes as she loses balance quickly with putting all her weight on her left leg and walks with a slight favoring gait, does appear to favor the left lower extremity, not using any assistive devices such as canes or walkers to ambulate. SKIN: Shows warm and dry, good turgor. No edema. No sores, rashes or bruising throughout. IMPRESSION: 1. This is a 78-year-old female with approximate 6-month history of low back and left lower extremity pain in a radicular fashion. 2. MRI scan of lumbar spine as noted. 3. Arthritis. 4. Hypertension. 5. Type 2 diabetes. PLAN: Options were discussed with the patient including conservative medical managements, physical therapies and interventional techniques. She would like to pursue interventional techniques. We discussed a lumbar epidural steroid injection using description as well as anatomical models to describe the procedure. Risks were then discussed including, but not limited to bleeding, infection, possibility of epidural hematoma, subsequent neurological compromise, dural puncture, headaches, spinal cord and/or nerve damage, side effects of steroid medication and poor results regarding pain control. The patient understands and wished to proceed. The patient will return to clinic in approximately 2 weeks for followup. She was counseled on return appointment, activity level and side effects to be aware of. DIAGNOSES: Lumbar radiculopathy with lumbar degenerative disk disease, lumbar spinal stenosis. PROCEDURE: Lumbar epidural steroid injection, translaminar approach at the L5-S1 level using C-arm fluoroscopic guidance under sterile prep and drape using local anesthetic. MEDICATION INJECTED: A total of 120 mg Depo-Medrol plus 10 mL of preservative-free normal saline and 2 mL of contrast. CONDITION AT DISCHARGE: Stable. The patient tolerated the procedure well, had no complications. PRABHA RYAN MD DR: SHIRIN/deirdre JOB#: [id number] / [id number] ROWENA Salgado MD
== END ==
LOC: PNCL 10:28
PROVIDERS: ATTEND Anesthesiology
DX: M51.16 Intervertebral disc disorders with radiculopathy, lumbar region (principal); M48.061 Spinal stenosis, lumbar region without neurogenic claudication; E11.9 Type 2 diabetes mellitus without complications; I10 Essential (primary) hypertension; E78.00 Pure hypercholesterolemia, unspecified; Z87.39 Personal history of other diseases of the musculoskeletal system and connective tissue; Z88.8 Allergy status to other drugs, medicaments and biological substances; Z79.84 Long term (current) use of oral hypoglycemic drugs
CPT/HCPCS: 62323; J1030; J1040; Q9965

== ENCOUNTER → 2019-08-18 | Outpatient (CLI) | payer BC ==
--- NOTE | 2019-08-18 13:09 | PAIN ---
DATE OF SERVICE: 08/18/2019 PROGRESS NOTE FOR PAIN CLINIC DIAGNOSES: Lumbar radiculopathy with lumbar degenerative disk disease and lumbar spinal stenosis. HISTORY OF PRESENT ILLNESS: The patient is a 79-year-old female who returns for followup status post lumbar epidural steroid injection x 1. The patient reports about 50% improvement in her low back and primarily left lower extremity pain. The patient reports it is still painful with walking, standing, but much better than it was. She was increasing her activity, distance walking, doing work activities and household activities, sitting for longer periods of time without as much discomfort. The patient reports still sleeping fairly well at night, does not generally awaken her from sleep. The patient reports no new motor or sensory deficits, no new bowel or bladder incontinence. Describes the pain as tingling and stabbing in the back, radiating to the right arm, into the left lower extremity, posterior gluteus, posterior thigh, posterior calf into the left foot primarily. The patient reports it is a 6 on a scale of 10 at its worst, 5 on average and 4 at its least and is a 5 today. The patient reports no other changes. PHYSICAL EXAMINATION: VITAL SIGNS: The patient's blood pressure 136/75, pulse 78, respirations 16, temperature is 98.1 degrees Fahrenheit, weight is 175 pounds. GENERAL: The patient is awake, alert, oriented, appropriate, very pleasant demeanor. HEENT: Shows normocephalic, atraumatic. Extraocular movements are intact and symmetrical. Oral cavity: Mucous membranes moist and pink. Dentition is intact. NECK: Shows anterior throat supple without palpable lymphadenopathy noted. Swallow reflex symmetrical. CHEST: Shows normal on inspection. Breath sounds are clear bilaterally. HEART: Shows S1, S2 clear. No murmurs auscultated. ABDOMEN: Soft, nontender, nondistended. No palpable organomegaly is noted. No rebound or guarding demonstrated. BACK: Shows spine grossly in the midline. Normal appearing thoracic kyphosis and some minor flattening of lumbar lordotic curvature. Lumbar paraspinous muscle shows symmetrical on inspection, with palpation shows some moderate tenderness diffusely bilaterally, but only diffusely without significant radiation. The patient has good rotational motion of lumbar spine, both laterally as well as extension and flexion without significant difficulty. EXTREMITIES: Lower extremities show deep tendon reflexes at 1+ in the patellar and tendo calcaneus tendons. Motor exam is approximately 4 on a scale of 5 on the left, 5/5 on the right with dorsiflexion, extension, quadriceps and hamstring flexion. Peripheral pulses are 1+ posterior tibial. No peripheral edema bilaterally. Options were discussed with the patient. The patient's old chart was reviewed as her current medication regimen updated. Current review of systems updated today as well and we will proceed with a second in the series of lumbar epidural steroid injection today with fluoroscopic guidance. Risks were again discussed including, but not limited to bleeding, infection, possibility of epidural hematoma, subsequent neurological compromise, dural puncture, headaches, spinal cord and/or nerve damage, side effects of steroid medication and poor results regarding pain control. The patient understands and wished to proceed. The patient will return to clinic in approximately 2 weeks for followup. She was counseled on return appointment, activity level and side effects to be aware of. DIAGNOSES: Lumbar radiculopathy with lumbar degenerative disk disease and lumbar spinal stenosis. PROCEDURE: Lumbar epidural steroid injection, translaminar approach at L5-S1 level using C-arm fluoroscopic guidance under sterile prep and drape using local anesthetic. MEDICATION INJECTED: A total of 120 mg Depo-Medrol plus 10 mL of preservative-free normal saline and 2 mL of contrast. CONDITION AT DISCHARGE: Stable. The patient tolerated the procedure well, had no complications. PRABHA RYAN MD DR: SHIRIN/deirdre JOB#: [id number] / [id number]
== END ==
LOC: PNCL 11:03
PROVIDERS: ATTEND Anesthesiology
DX: M51.16 Intervertebral disc disorders with radiculopathy, lumbar region (principal); M48.061 Spinal stenosis, lumbar region without neurogenic claudication
CPT/HCPCS: 62323; J1030; J1040; Q9965

== ENCOUNTER → 2019-11-10 | Outpatient (CLI) | payer BC ==
--- NOTE | 2019-11-10 12:24 | PDOC ---
Progress Note - Pain Clinic Date of Service: DOS: DATE: 11/10/19 TIME: 12:19 Diagnosis: Dx: Cervical radiculopathy with cervical degenerative disease and cervical spinal stenosis Lumbar radiculopathy with lumbar degenerative disc disease and lumbar spinal stenosis History or Present Illness: HPI: 39-year-old female returns follow-up status post lumbar epidural steroid injections x2. Patient reports approximately 90% decrease in pain in the low back and left lower extremity. Patient reports her chief complaint now is base of the neck and right shoulder and upper extremity pain. Reports is worse with standing walking using her right arm repetitive motions lifting weight reaching over her head with her right hand sleeping is waking her from sleep at least once or twice a night sometimes up to 3 or 4 times. Patient reports no weakness in the right upper extremity but significant fatigability with the right arm with any repetitive motions or carrying items. Patient reports her pain is an 8 on a scale of 10 is worse over the past week 5 on average 5 at its least is a 5 today patient scribes pain is aching and tingling stabbing base the neck and right upper extremity with can be unbearable rating to the right arm mostly in the anterior bicep and forearm. Physical Exam: VS: Blood pressure is 137/77 pulse 90 respirations 18 temperature 97.9 F weight is 177 pound PE: PHYSICAL EXAMINATION: GENERAL: The patient is awake, alert, oriented, appropriate, very pleasant demeanor HEENT: Shows normocephalic, atraumatic. Extraocular movements are intact and symmetrical. Oral cavity: Mucous membranes moist and pink. NECK: Shows anterior throat supple without palpable lymphadenopathy noted. Swallow reflex symmetrical. CHEST: Shows normal on inspection. Breath sounds are clear bilaterally, no rales rhonchi or wheezes auscultated. HEART: Shows S1, S2 clear. No murmurs auscultated. ABDOMEN: Soft, nontender, nondistended. No palpable organomegaly is noted. No rebound or guarding demonstrated. BACK: Shows spine grossly in the midline. Normal-appearing cervical lordotic curvature, neck shows good rotation motion cervical spine both laterally greater than 45 degrees closer to 90 degrees as well as full extension full forward flexion without significant increase in pain. There is slightly increased thoracic kyphosis, some minor flattening of the lumbar lordotic curvature. Lumbar paraspinous muscles show symmetrical on inspection, on palpation shows some moderate tenderness diffusely but without specific trigger points, without radiation of pain. The patient has good rotational motion of the lumbar spine, both laterally as well as extension and flexion without significant difficulty. No tenderness over the spinous processes, sacrum or sacroiliac regions. EXTREMITIES: Upper extremities show deep tendon reflexes 2+ in the biceps and triceps tendons. Motor exam is 4 on a scale of 5 with right order planner strength, bicep and tricep flexion and 5/5 on the left. Peripheral pulses are 2+ radial. No peripheral edema is noted bilaterally. Upper extremities are warm and dry to touch, equal in color and appearance. The patient is able to raise her hands up over her head without significant difficulty also shows no loss of strength on resistance with shoulder shrug as well as with abduction of the shoulders at 90 degrees bilaterally but with some moderate pain in the right neck and shoulder not the left. SKIN: Shows warm and dry, good turgor. No edema. No sores, rashes or bruising throughout. Procedure: Procedure: Options discussed with the patient. Patient will chart reviews her current medication regimen updated current review of systems updated today as well. We will proceed with a cervical epidural steroid injection today with fluoroscopic guidance risks were again discussed including but not limited to bleeding infection possibility of epidural hematoma subsequent neurological compromise dural puncture headache spinal cord and or nerve damage side effects of steroid medication and poor results regarding pain control. Patient understands and wishes to proceed. Patient will return to clinic in approximately 2 weeks for follow-up was counseled as to return appointment activity level and side effects to be aware of. Medication Injected: Med Injected: Procedure cervical epidural steroid injection at the C6-7 level, using local anesthetic under sterile prep and drape using C-arm fluoroscopic guidance under local anesthesia medications injected ; 120 mg Depo-Medrol + 5 mL normal saline and 2 mL contrast; condition at discharge is stable patient tolerated procedure well. and had no complications Condition at Discharge: Condition at Discharge: Condition at discharge is stable patient tolerated the procedure well had no complications. PRABHA RYAN MD Nov 10, 2019 12:24
== END | disposition home or self-care (01) ==
LOC: PNCL 11:36
PROVIDERS: ATTEND Anesthesiology
DX: M50.123 Cervical disc disorder at C6-C7 level with radiculopathy (principal); M48.02 Spinal stenosis, cervical region; Z88.0 Allergy status to penicillin; Z88.8 Allergy status to other drugs, medicaments and biological substances; Z79.899 Other long term (current) drug therapy
CPT/HCPCS: 62321; J1030; J1040; Q9965

== ENCOUNTER → 2019-12-22 | Outpatient (CLI) | payer BC ==
[~2019-12-22] MED LIST changes: +BUPIVACAINE MPF 0.25% 10 ML VIAL. ONE
--- NOTE | 2019-12-22 11:07 | PDOC ---
Progress Note - Pain Clinic Date of Service: DOS: DATE: 12/22/19 TIME: 11:03 Diagnosis: Dx: Lumbar degenerative disc disease with lumbar spinal stenosis and lumbar and lumbosacral spondylosis Cervical radiculopathy with cervical degenerative disc disease and cervical spinal stenosis History or Present Illness: HPI: 79-year-old female returns follow-up status post cervical epidural steroid injection and to lumbar epidural steroid injections most recently November 10, 2019 patient which showed 90% improvement of her low back pain but not as much about 50% with the neck pain patient reports that her back is her main complaint at this time with pain now only in the back not radiating to the lower extremities like it had previously patient ports worse with standing walking patient when she is working she is on her feet 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 Patient reports no new motor or sensory deficits no new bowel or bladder con's or other complaints. Physical Exam: VS: Blood pressure is 132/70 pulse 80 respirations 16 temperature 90.0 F weight is 179 pounds PE: PHYSICAL EXAMINATION: GENERAL: The patient is awake, alert, oriented, appropriate, very pleasant demeanor HEENT: Shows normocephalic, atraumatic. Extraocular movements are intact and symmetrical. Oral cavity: Mucous membranes moist and pink. NECK: Shows anterior throat supple without palpable lymphadenopathy noted. Swallow reflex symmetrical. CHEST: Shows normal on inspection. Breath sounds are clear bilaterally, no rales rhonchi or wheezes. HEART: Shows S1, S2 clear. No murmurs auscultated. ABDOMEN: Soft, nontender, nondistended, obese. No palpable organomegaly is noted. No rebound or guarding demonstrated. BACK: Shows spine grossly in the midline. Normal-appearing cervical lordotic curvature. There is slightly increased thoracic kyphosis, some minor flattening of the lumbar lordotic curvature. Lumbar paraspinous muscles show symmetrical o n inspection, on palpation shows some moderate tenderness diffusely throughout the upper, middle and lower distribution of the paraspinous muscles bilaterally, without specific trigger points, without radiation of pain. The patient has good rotational motion of the lumbar spine, both laterally as well as extension and flexion without significant difficulty. No tenderness over the spinous processes, sacrum or sacroiliac regions. EXTREMITIES: Lower extremities show deep tendon reflexes 1+ in the patellar and tendo calcaneus tendons. Motor exam is 5 on a scale of 5 with right dorsiflexion, extension, quadriceps and hamstring flexion and 4/5 on the left. Peripheral pulses are 1+ posterior tibial. No peripheral edema is noted bilaterally. Lower extremities are warm and dry to touch, equal in color and appearance. SKIN: Shows warm and dry, good turgor. No edema. No sores, rashes or bruising throughout. Procedure: Procedure: Options were discussed with the patient. Patient's old chart was reviewed as her current medication regimen updated current review of systems updated today as well. We will proceed with bilateral lumbar L4-5 and L5-S1 facet joint injections today. Risks were discussed including but not limited to: Bleeding, infection, possibility of epidural hematoma and subsequent neurological compromise, dural puncture, headaches, spinal cord and/or nerve damage, side effects of steroid medication, and poor results regarding pain control. Patient understands wished to proceed. Patient return to the clinic in approximately 3 weeks for follow-up was counseled as to return appointment activity level and side effects to be aware of. Medication Injected: Med Injected: Under sterile prep and drape using C-arm fluoroscopic guidance AP and lateral and oblique views, bilateral L4-5 and L5-S1 facet joint injections, medications injected: 120 mg Depo-Medrol +4 cc 0.25% bupivacaine +2 cc contrast. Condition at discharge stable patient tolerated the procedure well and no complications. Condition at Discharge: Condition at Discharge: Condition at discharge is stable patient tolerated procedure well had no complications. PRABHA RYAN MD Dec 22, 2019 11:07
== END ==
LOC: PNCL 10:21
PROVIDERS: ATTEND Anesthesiology
DX: M48.061 Spinal stenosis, lumbar region without neurogenic claudication (principal); M47.816 Spondylosis without myelopathy or radiculopathy, lumbar region; M47.817 Spondylosis without myelopathy or radiculopathy, lumbosacral region; M50.10 Cervical disc disorder with radiculopathy, unspecified cervical region; M48.02 Spinal stenosis, cervical region; I10 Essential (primary) hypertension; E11.9 Type 2 diabetes mellitus without complications; K21.9 Gastro-esophageal reflux disease without esophagitis; E78.00 Pure hypercholesterolemia, unspecified; Z88.0 Allergy status to penicillin; Z88.8 Allergy status to other drugs, medicaments and biological substances; Z79.82 Long term (current) use of aspirin; Z79.899 Other long term (current) drug therapy; Z79.84 Long term (current) use of oral hypoglycemic drugs
CPT/HCPCS: 64635; 64636; J1030; J1040; J3490; Q9965

== ENCOUNTER → 2020-02-19 | Outpatient (CLI) | payer BC ==
[~2020-02-19] MED LIST changes: -BUPIVACAINE MPF 0.25% 10 ML VIAL. ONE; -IOHEXOL 180 MG/ML 10 ML VIAL. ONE; -methylPREDNISolone ACETATE 40 MG/ML VIAL. ONE; -methylPREDNISolone ACETATE 80 MG/ML VIAL. ONE
--- NOTE | 2020-02-19 16:53 | RAD ---
Examination: MG BILAT SCREEN+CADENCE History: Reason: SCREENING MAMMOGRAM / Spl. Instructions: / History: Comparison/Correlation: 01/13/2019, 12/25/2017, 12/08/2016, 11/30/2015 Technique: MLO and CC digital tomosynthesis (3D) images obtained. Radiologist reviewed these images on dedicated workstation. Findings: Breast Tissue Density C : The breasts are heterogeneously dense, which may obscure small masses. There are no dominant masses, suspicious microcalcifications, or architectural distortion. IMPRESSION: No mammographic evidence of malignancy. Recommend routine screening. BI-RADS category 1: Negative. The images were reviewed with computer-aided detection. Patient information is entered into reminder system with a target due date for the next screening [facility]. Mammography is the most sensitive method for finding small breast cancers, but it does not detect the m all and is not a substitute for careful clinical examination. A negative mammogram does not negate a clinically suspicious finding and should not result in delay in biopsying a clinically suspicious a bnormality. "Our facility is accredited by the [employer] Mammography Program." Electronically signed by: Edwin Gunter MD (02/19/2020 4:51 PM) [id number]
== END ==
LOC: MAMMO 14:43
PROVIDERS: ATTEND Family Medicine
DX: Z12.31 Encounter for screening mammogram for malignant neoplasm of breast (principal)
CPT/HCPCS: 77063; 77067

== ENCOUNTER → 2020-11-11 | Outpatient (CLI) | payer BC ==
[~2020-11-11] MED LIST changes: +REGADENOSON 0.4 MG/5 ML DISP.SYRIN. IV ONE; +VERA180T22 PO; -VERA180T6 PO
--- NOTE | 2020-11-11 16:01 | RAD ---
MR#: [id number] Date of Study: 11/11/2020 Ordering Physician: BRENDA SANTIAGO, Referring Physician: JESS LUQUE Tech: RT Srikanth (R) (N) APPROVED REPORT Test Type: Pharmacological Stress Nurse/Tech: Maureen Jackson RN Test Indications: Chest discomfort Cardiac History: Hypertension, Diabetes Medications: See Electronic Medical Record Medical History: See Electronic Medical Record Resting ECG: SR with BBB Resting Heart Rate: 60 bpm Resting Blood Pressure: 134/68mmHg Pretest Chest Pain: No chest pain Nurse/Tech Notes S1,S2 and lungs clear to auscultation. Consent: The procedure was explained to the patient in lay terms. Informed consent was witnessed. Elkin eout was entered into [employer]. History and Stress Test performed by [facility]ILL[facility] [employer]. Details Pharmacologic stress testing was performed using 0.4mg per 5ml of regadenoson given intravenously ove r 7-10 seconds. Stress Symptoms Dyspnea,headache POST EXERCISE Reason for Termination: Infusion complete Target HR: No Max HR: 69 bpm 57% of Maximum Predicted HR: 120 bpm Max Blood Pressure: 132/49mmHg Blood Pressure response to exercise: Normal blood pressure response during stress. Heart Rate response to exercise: WNL Chest Pain: No. Arrhythmia: No. ST Change: No. INTERPRETATION Stress EKG Conclusion: Baseline EKG showed sinus rhythm. No ischemic changes at peak stress. No arr hythmias. Imaging Protocol IMAGE PROTOCOL: Rest Tc-99m/stress Tc-99m 1 day Rest: Stress: Viability: Radiopharm.Tc99m QysgojhtoQk91d Sestamibi Phxo64gXp 33mCi Duration 13min. 13min. Img Date 11/11/2020 11/11/2020 Inj-Img Ojyc78odx. 60min. Rest Admin Site:IV - Right AntecubitalAdministrator:REILLY King Stress Admin Site: IV - Right AntecubitalAdministrator: REILLY King STRESS DATA End Diast. Vol.79.0mlLVEDV index BSA43.0ml End Syst. Vol.23.0mlLVESV index BSA13.0ml Myocardial Duph958.0gEject. Enzhmlmj83.0% Stress Scores Regional WT0.00Summed WT4.00 Regional WM0.00Summed WM1.00 Study quality was good. Left Ventricular size was Normal at Rest and Stress. Lung uptake was . Left Ventricular ejection fraction is 71%. The rest and stress images show normal perfusion, normal contraction and thickening. LV Perf. Quant 17 Seg. SSS3.00 17 Seg. SRS3.00 17 Seg. SDS2.00 Stress Defect Extent (% LAD)3.10Rest Defect Extent (% LAD)4.40Rev. Defect Extent (% LAD)0.00 Stress Defect Extent (% LCX) 1.30Rest Defect Extent (% LCX)0.00Rev. Defect Extent (% LCX)1.30 Stress Defect Extent (% RCA)0.00Rest Defect Extent (% RCA)2.20Rev. Defect Extent (% RCA)0.00 Stress Defect Extent (% STAR)3.50Rest Defect Extent (% STAR)4.30Rev. Defect Extent (% STAR)0.20 Conclusion 1. Regadenoson cardioisotope stress test did not show any evidence of ischemia or infarct. 2. Normal left ventricular systolic function with ejection fraction calculated at 71%. 3. Low risk for cardiac events. Signed by : Man Porras, Electronically Approved : 11/11/2020 16:01:23
== END ==
LOC: NM 08:11
PROVIDERS: ATTEND Internal Medicine Cardiovascular Disease
DX: R07.9 Chest pain, unspecified (principal); R06.00 Dyspnea, unspecified; R51.9 Headache, unspecified
CPT/HCPCS: 78452; 93017; A9500; J2785

== ENCOUNTER → 2021-03-01 | Outpatient (CLI) | payer BC ==
[~2021-03-01] MED LIST changes: +CYCL10TA19 PO; -CYCL10TA2 PO; -REGADENOSON 0.4 MG/5 ML DISP.SYRIN. IV ONE; +TIZA-75 PO; -TIZA4TAB2 PO; -VERA180T22 PO; +VERA180T34 PO
--- NOTE | 2021-03-01 11:51 | RAD ---
INDICATION: 80 years of age asymptomatic female patient presents for screening mammography. Screening TECHNIQUE: Full field craniocaudal and mediolateral oblique images of both breasts were obtained usi ng digital technique with tomosynthesis and also analyzed with computer-aided detection software. . COMPARISON: 02/19/2020 01/13/2019. BREAST COMPOSITION: Category C: The breast tissue is heterogeneously dense, which could obscure detec tion of small masses. FINDINGS: No suspicious masses, microcalcifications or architectural distortion is present to suggest malignanc y in either breast. The visualized axillae are unremarkable. IMPRESSION: Stable bilateral mammogram. RECOMMENDATION: Annual screening mammography is recommended, unless clinically indicated sooner based on symptoms or change in physical exam. BIRADS 1: NEGATIVE This study was interpreted with the benefit of Computerized Aided Detection (CAD). Recommend routine screening in one year. Patient information is entered into the reminder system with a target due date for the next screening mammogram. Mammography is the most sensitive method for finding small breast cancers, but it does not detect the m all and is not a substitute for careful clinical examination. A negative mammogram does not negate a clinically suspicious finding and should not result in delay in biopsying a clinically suspicious a bnormality. "Our facility is accredited by the [employer] Mammography Program." Electronically signed by: Mychal Carter MD (03/01/2021 11:49 AM) [id number]
== END ==
LOC: MAMMO 11:06
PROVIDERS: ATTEND Family Medicine
DX: Z12.31 Encounter for screening mammogram for malignant neoplasm of breast (principal)
CPT/HCPCS: 77063; 77067